=== PATIENT | male | born 1980 | race Caucasian/White ===

== ENCOUNTER 2017-10-29 15:01 | Emergency (ER) | payer OTHER, SELFPAY ==
[2017-10-29 15:21] VITALS: RESP 18
[2017-10-29] MEDS ORDERED: Aspirin 325 mg EC Tablets PO STA (15:31)
[2017-10-29] MEDS ORDERED: Aspirin 325 mg EC Tablets PO ONE (15:45)
[2017-10-29 15:47] LABS: BASO # 0.1 K/uL (0.0-0.2); BASO % 0.8 % (0.0-2.0); EOS # 0.1 K/uL (0.0-0.7); EOS % 0.8 % (0.0-4.0); HEMOGLOBIN 14.5 g/dL (12.0-18.0); LYMPH # 2.1 K/uL (1.0-4.3); LYMPH % 31.6 % (20.0-40.0); MEAN CELL VOLUME 92.7 fL (80.0-94.0); MEAN CORPUSCULAR HEMOGLOBIN 32.2 pg (27.0-31.0); MEAN CORPUSCULAR HGB CONC 34.8 g/dL (33.0-37.0); MEAN PLATELET VOLUME 7.4 fL (7.2-11.7); MONO # 0.5 K/uL (0.0-0.8); MONO % 7.7 % (0.0-10.0); NEUT # 3.9 K/uL (1.8-7.0); NEUT % 59.1 % (50.0-75.0); RBC 4.5 Mil/uL (4.40-5.90); RED CELL DISTRIBUTION WIDTH 13.3 % (11.5-14.5); WHITE BLOOD COUNT 6.6 K/uL (4.8-10.8)
[2017-10-29 16:09] LABS: ALB/GLOB RATIO 1.3 (1.0-2.1); ALBUMIN 4.3 g/dL (3.5-5.0); ALT/SGPT 42 U/L (21-72); AST/SGOT 49 U/L (17-59); BLOOD UREA NITROGEN 15 mg/dL (9-20); CALCIUM 8.8 mg/dl (8.6-10.4); GFR AFRICAN-AMERICAN > 60; GFR NON-AFRICAN AMERICAN > 60; HDL CHOLESTEROL 34 mg/dL (30-70)
[2017-10-29 16:20] LABS: LDL CHOLESTEROL 45 mg/dL (0-129)
--- NOTE | 2017-10-29 16:24 | RAD ---
HISTORY: COMPARISON: 09/21/2016. TECHNIQUE: Chest PA and lateral FINDINGS: LINES AND TUBES: None. LUNG AND PLEURA: The lungs are well inflated and clear. HEART AND MEDIASTINUM: The heart is not enlarged. The hilar and mediastinal contours are within normal limits. SKELETAL STRUCTURES: The bony structures are within normal limits for the patient's age. VISUALIZED UPPER ABDOMEN: Normal. OTHER FINDINGS: None. IMPRESSION: No active pulmonary disease.
--- NOTE | 2017-10-29 16:35 | C.PDOC ---
History Of Present Illness 37 year old male presents to the ED for evaluation of intermittent chest pain which began 1 week ago. Patient describes a squeezing pain that travels across his entire chest, but is worse on the left side. Patient also reports that for the past 3 days, he has been feeling his heart beating really fast in the morning. Patient has been taking Lorazepam for his Anxiety with mild relief. Patient denies shortness of breath, dizziness, nausea, vomiting, extremity numbness/weakness. Time Seen by Provider: 10/29/17 15:22 Chief Complaint (Nursing): Chest Pain History Per: Patient History/Exam Limitations: no limitations Onset/Duration Of Symptoms: Intermittent Episodes, Other (1 week ) Current Symptoms Are (Timing): Still Present Associated Symptoms: Chest Pain Additional History Per: Patient Past Medical History Reviewed: Historical Data, Nursing Documentation, Vital Signs Vital Signs: Last Vital Signs Temp 97.6 F 10/29/17 17:15 Pulse 64 10/29/17 17:15 Resp 18 10/29/17 17:15 BP 123/75 10/29/17 17:15 Pulse Ox 96 10/29/17 18:40 - Medical History PMH: Anxiety, Depression, HTN, Hypercholesterolemia Denies: Chronic Kidney Disease Surgical History: No Surg Hx Family History: States: Unknown Family Hx - Social History Hx Tobacco Use: No Hx Alcohol Use: No Hx Substance Use: No - Immunization History Hx Influenza Vaccination: No Hx Pneumococcal Vaccination: No Review Of Systems Cardiovascular: Positive for: Chest Pain Respiratory: Negative for: Shortness of Breath Gastrointestinal: Negative for: Nausea, Vomiting Neurological: Negative for: Dizziness Psych: Positive for: Anxiety Physical Exam - Physical Exam Appears: Well, Non-toxic, No Acute Distress Skin: Warm, Dry, No Diaphoretic, No Pale Head: Atraumatic, Normacephalic Eye(s): bilateral: Normal Inspection, PERRL, EOMI Oral Mucosa: Moist Neck: Normal ROM, Supple Chest: Symmetrical, No Deformity, No Tenderness Cardiovascular: Rhythm Regular, No Murmur Respiratory: Normal Breath Sounds, No Rales, No Rhonchi, No Wheezing Gastrointestinal/Abdominal: Soft, No Tenderness, No Guarding Back: Normal Inspection, No CVA Tenderness Extremity: Normal ROM, No Tenderness, No Pedal Edema Pulses: Left Radial: Normal Neurological/Psych: Oriented x3, Normal Speech Gait: Steady ED Course And Treatment - Laboratory Results Result Diagrams: 10/29/17 15:43 10/29/17 15:43 ECG: Interpreted By Me, Viewed By Me ECG Rhythm: Sinus Rhythm Interpretation Of ECG: EKG shows NS at 73 bpm with normal axis and no ST-T changes Rate From EC O2 Sat by Pulse Oximetry: 96 (on RA) Pulse Ox Interpretation: Normal - Other Rad CXR X-Ray: Interpreted by Me, Viewed By Me, Read By Radiologist Interpretation: HISTORY: COMPARISON: 09/21/2016. TECHNIQUE: Chest PA and lateral. FINDINGS: LINES AND TUBES: None. LUNG AND PLEURA: The lungs are well inflated and clear. HEART AND MEDIASTINUM: The heart is not enlarged. The hilar and mediastinal contours are within normal limits. SKELETAL STRUCTURES: The bony structures are within normal limits for the patient's age. VISUALIZED UPPER ABDOMEN: Normal. OTHER FINDINGS: None. IMPRESSION: No active pulmonary disease. Medical Decision Making Medical Decision Making: Impression: chest pain, anxiety Prior records reviewed: patient seen on 09/21/16 for chest pain and admitted to obs-telemetry. Patient has negative cardiac workup and discharged Plan: * EKG * Labs * CXR * ASA Progress: EKG shows NS at 73 bpm with normal axis and no ST-T changes Labs reviewed and unremarkable, negative troponin and no WBC elevation to suggest infectious etiology. CXR shows no active disease. Triglycerides are elevated. Based on negative findings for week long history of chest pain, unlikely ACS or acute process. On re-evaluation patient is resting comfortably on bed in no distress. I discussed results with patient and provided copy of results to patient. I explained triglycerides are high and need further evaluation and recommend OTC fish oil, diet changes and exercise. I also instructed patient he needs to follow up in the clinic and with cardiology if symptoms persist. The ER rules out acute conditions and he may need further workup outpatient. Patient expressed understanding and feels comfortable going home and will be discharged. Disposition Counseled Patient/Family Regarding: Studies Performed, Diagnosis, Need For Followup - Disposition Referrals: Marjan Orellana MD [Staff Provider] - Disposition: HOME/ ROUTINE Disposition Time: 17:06 Condition: GOOD Additional Instructions: Por favor, siga con la clnica para ms cuidados Kristyn laboratorios y jett fueron normales Vander Tylenol o Motrin para cualquier dolor Instructions: Chest Pain Forms: [facility] (P[place]deinig) Print Language: FAROESE - POA Present On Arrival: None - Clinical Impression Clinical Impression: Chest pain, Palpitations, Anxiety - PA / JAVA LEAD / Resident Statement MD/DO has reviewed & agrees with the documentation as recorded. - Scribe Statement The provider has reviewed the documentation as recorded by the Scribe (Rea Mayorga) All medical record entries made by the Scribe were at my direction and personally dictated by me. I have reviewed the chart and agree that the record accurately reflects my personal performance of the history, physical exam, medical decision making, and the department course for this patient. I have also personally directed, reviewed, and agree with the discharge instructions and disposition.
[2017-10-29 17:16] VITALS: BP 123/75; PULSE 64; TEMP 97.6
[2017-10-29 17:34] VITALS: O2SAT 96
--- NOTE | 2017-10-30 23:38 | CARD ---
APPROVED REPORT EKG Measurement Heart [id number] <Conclusion> Normal sinus rhythm Normal ECG
== END 2017-10-29 17:16 | disposition home or self-care (01) ==
LOC: C.ER 15:01
DX: R07.9 Chest pain, unspecified (principal); R00.2 Palpitations; F41.9 Anxiety disorder, unspecified; I10 Essential (primary) hypertension; E78.00 Pure hypercholesterolemia, unspecified

== ENCOUNTER 2018-09-26 19:12 | Emergency (ER) | payer OTHER ==
--- NOTE | 2018-09-26 19:46 | C.PDOC ---
History Of Present Illness 38 year old male presents to the ED c/o chest pain for the past 4 days. Patient reports pain worsens with movement and standing up. 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 Patient denies fever, chills, SOB, palpitations, headache, visual changes, rash, weakness, numbness. Time Seen by Provider: 09/26/18 19:45 Chief Complaint (Nursing): Chest Pain History Per: Patient History/Exam Limitations: no limitations Onset/Duration Of Symptoms: Days (4) Current Symptoms Are (Timing): Still Present Quality: "Pain" Exacerbating Factors: Movement Recent travel outside of the [place]: No Additional History Per: Patient Past Medical History Reviewed: Historical Data, Nursing Documentation, Vital Signs Vital Signs: Last Vital Signs Temp 97.8 F 09/26/18 19:38 Pulse 77 09/26/18 19:38 Resp 18 09/26/18 19:38 BP 142/81 09/26/18 19:38 Pulse Ox 99 09/26/18 19:38 - Medical History PMH: Anxiety, Depression, HTN, Hypercholesterolemia Denies: Chronic Kidney Disease Surgical History: No Surg Hx Family History: States: Unknown Family Hx - Social History Hx Tobacco Use: No Hx Alcohol Use: No Hx Substance Use: No - Immunization History Hx Influenza Vaccination: No Hx Pneumococcal Vaccination: No Review Of Systems Constitutional: Negative for: Fever, Chills Cardiovascular: Positive for: Chest Pain. Negative for: Palpitations Respiratory: Negative for: Cough, Shortness of Breath Gastrointestinal: Negative for: Nausea, Vomiting, Abdominal Pain Skin: Negative for: Rash Neurological: Negative for: Weakness, Numbness, Headache, Dizziness Physical Exam - Physical Exam Appears: Non-toxic, No Acute Distress Skin: Warm, Dry Head: Normacephalic Eye(s): bilateral: Normal Inspection Neck: Supple Chest: Symmetrical, No Tenderness Cardiovascular: Rhythm Regular Respiratory: No Rales, No Rhonchi, No Wheezing Gastrointestinal/Abdominal: Soft, No Tenderness, No Guarding, No Rebound Extremity: Bilateral: Atraumatic, Normal Color And Temperature, Normal ROM Neurological/Psych: Oriented x3, Normal Speech, Normal Cognition Gait: Steady ED Course And Treatment - Laboratory Results Result Diagrams: 09/26/18 19:54 09/26/18 19:54 ECG: Interpreted By Me, Viewed By Me ECG Rhythm: Sinus Rhythm (75), Nonspecific Changes O2 Sat by Pulse Oximetry: 99 (ON RA) Pulse Ox Interpretation: Normal - Radiology CXR: Interpreted by Me, Viewed By Me Progress Note: Plan: - Labs. - EKG Reevaluation Time: 22:00 Reassessment Condition: Improved Medical Decision Making Medical Decision Making: I considered the following diagnoses: acute coronary syndrome, pulmonary embolism, lower respiratory infection, aortic dissection/aneurysm, pneumothorax, pericarditis, esophagitis/GERD, zoster and esophageal rupture but found them to be unlikely based on the history, physical exam, and diagnostics. My conclusions regarding the unlikely diagnoses were based on: the absence of significant EKG abnormalities, the lack of suggestive x-ray findings, the absence of significant abnormalities on cardiac monitoring, the absence of asymmetric pulses. Pt is cp free and wants to go home Upon provider reevaluation patient is feeling better, is medically stable, and requires no further treatment in the ED at this time. Patient will be discharged home with Rx for motrin. Counseling was provided and all questions were answered regarding diagnosis and need for follow up with the referred clinic. There is agreement to discharge plan. Return if symptoms persist or worsen. Disposition Counseled Patient/Family Regarding: Studies Performed, Diagnosis, Need For Followup - Disposition Disposition: HOME/ ROUTINE Disposition Time: 22:02 Condition: FAIR Additional Instructions: Please return if symptoms recur Prescriptions: Ibuprofen [Motrin Tab] 800 mg PO TID PRN #15 tab PRN Reason: Pain, Moderate (4-7) Instructions: Costochondritis (DC) Forms: [facility] (Danish) Print Language: LATVIAN - Clinical Impression Clinical Impression: Chest discomfort, Costochondral chest pain - Scribe Statement The provider has reviewed the documentation as recorded by the Scribe Timothy Sagastume All medical record entries made by the Scribe were at my direction and personally dictated by me. I have reviewed the chart and agree that the record accurately reflects my personal performance of the history, physical exam, medical decision making, and the department course for this patient. I have also personally directed, reviewed, and agree with the discharge instructions and disposition.
[2018-09-26 20:01] LABS: BASO # 0.1 K/uL (0.0-0.2); EOS # 0.1 K/uL (0.0-0.7); EOS % 1.1 % (0.0-4.0); HEMOGLOBIN 15.2 g/dL (12.0-18.0); LYMPH # 2.7 K/uL (1.0-4.3); LYMPH % 30.3 % (20.0-40.0); MEAN CELL VOLUME 93.9 fL (80.0-94.0); MEAN CORPUSCULAR HEMOGLOBIN 31.4 pg (27.0-31.0); MEAN CORPUSCULAR HGB CONC 33.4 g/dL (33.0-37.0); MEAN PLATELET VOLUME 7.6 fL (7.2-11.7); MONO # 0.5 K/uL (0.0-0.8); MONO % 5.7 % (0.0-10.0); NEUT # 5.6 K/uL (1.8-7.0); NEUT % 61.9 % (50.0-75.0); RBC 4.84 Mil/uL (4.40-5.90); RED CELL DISTRIBUTION WIDTH 13.3 % (11.5-14.5)
[2018-09-26 20:16] LABS: ALB/GLOB RATIO 1.5 (1.0-2.1); ALBUMIN 4.6 g/dL (3.5-5.0); ALT/SGPT 52 U/L (21-72); AST/SGOT 31 U/L (17-59); BLOOD UREA NITROGEN 13 mg/dL (9-20); CALCIUM 9.2 mg/dl (8.6-10.4); GFR NON-AFRICAN AMERICAN > 60
[2018-09-26 22:10] VITALS: BP 114/68; PULSE 65; TEMP 98.1; O2SAT 98
[2018-09-26 22:21] VITALS: RESP 16
--- NOTE | 2018-10-01 00:02 | CARD ---
APPROVED REPORT Date of service: 09/26/2018 EKG Measurement Heart [id number] <Conclusion> Normal sinus rhythm Normal ECG
== END 2018-09-26 22:20 | disposition home or self-care (01) ==
LOC: C.ER 19:12
DX: R07.89 Other chest pain (principal)
CPT/HCPCS: 80053; 84484; 85025; 93005; 96374; 99284; J1885

== ENCOUNTER 2018-11-19 18:18 | Emergency (ER) | payer SELFPAY ==
[2018-11-19] MEDS ORDERED: Iohexol 240 (50 ml) PO ONE (20:09)
[2018-11-19] MEDS ORDERED: Sodium Chloride 0.9% 1,000 ML IV ONE (20:10)
[2018-11-19] MEDS ORDERED: Sodium Chloride 0.9% 1,000 ML ONE (20:16)
[2018-11-19] MEDS ORDERED: Iohexol 240 (50 ml) ONE (20:16)
--- NOTE | 2018-11-19 20:18 | C.PDOC ---
History Of Present Illness 38 year old male presents to the ED c/o on and off abdominal pain for the past 3 weeks. Patient reports pain is mostly on the left side of his abdomen and associated with nausea. Patient denies fever, chills, CP, SOB, vomit, diarrhea, rash, back pain, dysuria. Chief Complaint (Nursing): Abdominal Pain History Per: Patient History/Exam Limitations: no limitations Onset/Duration Of Symptoms: Intermittent Episodes Current Symptoms Are (Timing): Still Present Location Of Pain/Discomfort: LLQ Quality Of Discomfort: "Pain" Associated Symptoms: Nausea. denies: Vomiting, Diarrhea, Urinary Symptoms Recent travel outside of the [place]: No Additional History Per: Patient Past Medical History Reviewed: Historical Data, Nursing Documentation, Vital Signs Vital Signs: Last Vital Signs Temp 98.1 F 11/19/18 18:41 Pulse 76 11/19/18 18:41 Resp 20 11/19/18 18:41 BP 137/89 11/19/18 18:41 Pulse Ox 96 11/19/18 18:41 - Medical History PMH: Anxiety, Depression, HTN, Hypercholesterolemia Denies: Chronic Kidney Disease Surgical History: No Surg Hx Family History: States: Unknown Family Hx - Social History Hx Tobacco Use: No Hx Alcohol Use: No Hx Substance Use: No - Immunization History Hx Influenza Vaccination: No Hx Pneumococcal Vaccination: No Review Of Systems Constitutional: Negative for: Fever, Chills Cardiovascular: Negative for: Chest Pain Respiratory: Negative for: Shortness of Breath Gastrointestinal: Positive for: Nausea, Abdominal Pain. Negative for: Vomiting Skin: Negative for: Rash Neurological: Negative for: Weakness, Numbness Physical Exam - Physical Exam Appears: Non-toxic, In Acute Distress Skin: Normal Color, Warm, Dry Head: Atraumatic, Normacephalic Eye(s): bilateral: Normal Inspection Oral Mucosa: Moist Neck: Normal ROM, Supple Chest: Symmetrical Cardiovascular: Rhythm Regular Respiratory: Normal Breath Sounds, No Rales, No Rhonchi, No Wheezing Gastrointestinal/Abdominal: Soft, Tenderness (LLQ), No Guarding, No Rebound Back: No CVA Tenderness Extremity: Normal ROM, No Tenderness, No Swelling Neurological/Psych: Oriented x3, Normal Speech, Normal Cognition Gait: Steady ED Course And Treatment - Laboratory Results Result Diagrams: 11/19/18 20:26 11/19/18 20:26 O2 Sat by Pulse Oximetry: 96 (ON RA) Pulse Ox Interpretation: Normal - CT Scan/US CT abd/pelvis Other Rad Studies (CT/US): Read By Radiologist, Radiology Report Reviewed CT/US Interpretation: EXAM: CT Abdomen and Pelvis with IV and oral contrast agent. CLINICAL HISTORY: Llq pain and tenderness. TECHNIQUE: Axial computed tomography images of the abdomen and pelvis with intravenous contrast. 0.00 mGy-cm. CONTRAST: With; OMNI 240 & 100MLS OMNI 350. COMPARISON: None provided. FINDINGS: LUNG BASES: The lung bases appear clear. No pleural effusions are seen. LIVER: There is hepatomegaly. The liver measured 17.8 cm in the midclavicular line. GALLBLADDER AND BILE DUCTS: The gallbladder appears within normal limits. No radioopaque gallstones are seen. No biliary ductal dilatation is evident. PANCREAS: Unremarkable. SPLEEN: Unremarkable. ADRENAL GLANDS: Unremarkable. KIDNEYS, URETERS, AND BLADDER: The kidneys appear within normal limits. There is no hydronephrosis or hydroureter. No renal calculi are seen. The urinary bladder is normal in size and configuration. Small calcification is present at the anterior bladder wall may represent retained bladder calculus or related to old infection. STOMACH AND BOWEL: Unremarkable appearance of the stomach and bowel. No evidence of bowel obstruction. No evidence suggesting enteritis or colitis. APPENDIX: No evidence of acute appendicitis on CT examination. PERITONEUM: No free fluid. No free air. LYMPH NODES: No lymphadenopathy is evident. REPRODUCTIVE: Unremarkable as visualized. VASCULATURE: No evidence of abdominal aortic aneurysm. BONES: No aggressive appearing osseous lesion. No acute osseous pathology evident. IMPRESSION: No acute intra-abdominal or pelvic abnormality. Small calcification is present at the anterior bladder wall may represent retained bladder calculus or related to old infection. . Electronically signed on Nov 19, 2018 11:23:15 PM EDT by: Edison Jamison M.D., DEEP Certified By ABR & CBC[employer]. Fellowship Trained MRI and CT Specialist Medical Decision Making Medical Decision Making: Plan: * CT abd/pelvis * Labs * IV fluids * UA Disposition Counseled Patient/Family Regarding: Diagnosis - Disposition Referrals: [facility] [Outside] Disposition: HOME/ ROUTINE Disposition Time: 23:35 Condition: STABLE Prescriptions: Dicyclomine [Dicyclomine HCl] 10 mg PO BID #14 cap Instructions: Acute Abdomen (Belly Pain), Adult (DC), Inflammatory Bowel Disease (DC) Forms: [facility] (Sammarinese), Gen Discharge Inst Afghan Print Language: MALTESE - POA Present On Arrival: None - Clinical Impression Clinical Impression: Abdominal pain, Enteritis - Scribe Statement The provider has reviewed the documentation as recorded by the Scribe Timothy Sagastume All medical record entries made by the Scribe were at my direction and personally dictated by me. I have reviewed the chart and agree that the record accurately reflects my personal performance of the history, physical exam, medical decision making, and the department course for this patient. I have also personally directed, reviewed, and agree with the discharge instructions and disposition.
[2018-11-19 20:32] LABS: BASO % 0.5 % (0.0-2.0); EOS # 0.1 K/uL (0.0-0.7); EOS % 0.9 % (0.0-4.0); HEMOGLOBIN 15.8 g/dL (12.0-18.0); LYMPH # 2.6 K/uL (1.0-4.3); LYMPH % 30.2 % (20.0-40.0); MEAN CELL VOLUME 92.8 fL (80.0-94.0); MEAN CORPUSCULAR HEMOGLOBIN 31.5 pg (27.0-31.0); MEAN CORPUSCULAR HGB CONC 33.9 g/dL (33.0-37.0); MEAN PLATELET VOLUME 7.4 fL (7.2-11.7); MONO # 0.7 K/uL (0.0-0.8); MONO % 7.6 % (0.0-10.0); NEUT # 5.3 K/uL (1.8-7.0); NEUT % 60.8 % (50.0-75.0); RBC 5.01 Mil/uL (4.40-5.90); WHITE BLOOD COUNT 8.8 K/uL (4.8-10.8)
[2018-11-19 20:38] LABS: URINE BILIRUBIN NEGATIVE (NEGATIVE); URINE BLOOD NEGATIVE (NEGATIVE); URINE CLARITY Clear (Clear); URINE COLOR Yellow (YELLOW); URINE GLUCOSE (UA) NORMAL (Normal); URINE LEUKOCYTE ESTERASE NEG Leu/uL (Negative); URINE PROTEIN NEGATIVE (NEGATIVE); URINE UROBILINOGEN NORMAL mg/dL (0.2-1.0)
[2018-11-19 20:43] LABS: ALB/GLOB RATIO 1.7 (1.0-2.1); ALBUMIN 4.7 g/dL (3.5-5.0); ALT/SGPT 25 U/L (21-72); AST/SGOT 25 U/L (17-59); BLOOD UREA NITROGEN 15 mg/dL (9-20); CALCIUM 9.4 mg/dl (8.6-10.4); GFR NON-AFRICAN AMERICAN > 60; LIPASE 95 U/L (23-300)
[2018-11-19] MEDS ORDERED: Iohexol 350mg/ml 100 ML ONE (21:43)
[2018-11-20 00:02] VITALS: BP 118/74; PULSE 59; RESP 18; TEMP 98.7; O2SAT 100
--- NOTE | 2018-11-20 09:30 | CT ---
CT abdomen and pelvis History: Abdominal pain. Comparison: None available. Technique: Multiple contiguous axial images were performed through the abdomen and pelvis with the use of intravenous contrast. Subsequently, sagittal and coronal reformatted images were obtained. This CT exam was performed using one or more of the following dose reduction techniques: Automated exposure control, adjustment of the mA and/or kV according to patient size, and/or use of iterative reconstruction technique. Findings: Mild atelectasis at the lung bases. 6 millimeter calcified granuloma at the lateral aspect of the left lower lobe. No pleural or pericardial effusion. 1.2 centimeter focal area of low attenuation seen within the medial right hepatic lobe adjacent to the ligamentum teres which may represent some focal fatty infiltration. Additional etiologies not excluded. Clinical correlation. Correlation with multiphasic contrast enhanced CT or MR may be helpful for further evaluation if clinically indicated. Gallbladder is preserved. Spleen is preserved. Adrenal glands are preserved. Pancreas is preserved. Upper abdominal bowel is preserved. Right kidney: Scattered areas of somewhat ill-defined low-attenuation seen throughout the right kidney. In the appropriate clinical setting, this may represent an underlying pyelonephritis. Additional etiologies not excluded. Clinical correlation. Correlation with multiphasic contrast enhanced CT or MR may be helpful for further evaluation if clinically indicated. No calculi or hydronephrosis. Left Kidney: Few scattered areas of ill-defined low attenuation throughout the left kidney. In the appropriate clinical setting this may represent an underlying pyelonephritis. Additional etiologies not excluded. Clinical correlation. Correlation with multiphasic contrast enhanced CT or MR may be helpful for further evaluation if clinically indicated. No calculi or hydronephrosis. Small calcification is present at the anterior urinary bladder wall which may represent old infection versus sequelae of urachal remnant versus punctate bladder calculus versus additional etiology. Prostate appears preserved. Moderate fecal retention in the colon. Appendix is within normal limits. No significant abdominal or pelvic lymphadenopathy. Degenerative changes in the spine with a posterior disc osteophyte complex at the L5-S1 level. Impression: 1. Scattered areas of ill-defined low attenuation in the bilateral kidneys which may represent an acute pyelonephritis. Additional etiologies not excluded. Clinical correlation. Correlation with multiphasic contrast enhanced CT or MR may be helpful for further evaluation if clinically indicated. 2. Small calcification is present at the anterior urinary bladder wall which may represent old infection versus sequelae of urachal remnant versus punctate bladder calculus versus additional etiology. 3. 1.2 centimeter focal area of low attenuation seen within the medial right hepatic lobe adjacent to the ligamentum teres which may represent some focal fatty infiltration. Additional etiologies not excluded. Clinical correlation. Correlation with multiphasic contrast enhanced CT or MR may be helpful for further evaluation if clinically indicated. Additional findings as above. These findings were discussed with physician administrative office assistant Devika Pollack at 9:15 a.m. on 11/20/2018. A discordant preliminary report was generated at 11:23 p.m. on 11/19/[address] Edison Jamison from [employer].
== END 2018-11-20 00:11 | disposition home or self-care (01) ==
LOC: C.ER 18:18
DX: K52.9 Noninfective gastroenteritis and colitis, unspecified (principal); R10.32 Left lower quadrant pain
CPT/HCPCS: 74177; 80053; 81001; 83690; 85025; 99285; J7030; Q9966; Q9967